=== PATIENT | female | born 1975 | race Caucasian/White ===

== ENCOUNTER 2017-11-17 02:54 | Inpatient (IN) | payer OTHER ==
[~2017-11-17] VITALS: Ht 162.6 cm; Wt 62.1 kg
[2017-11-17 06:47] VITALS: BP 135/91
[2017-11-17] MEDS ORDERED: LORazepam 2 MG TABLET PO PRN (07:00)
[2017-11-17] MEDS ORDERED: ZOLPIDEM TARTRATE 10 MG TABLET PO PRN (07:00)
[2017-11-17] MEDS ORDERED: HALOPERIDOL 5 MG TABLET PO PRN (07:00)
[2017-11-17 07:10] VITALS: BP 152/105
[2017-11-17] MEDS ORDERED: PNEUMOCOCCAL VACCINE POLYVALENT 0.5 ML VIAL [PPSV23] IM ONE (07:45)
[2017-11-17 08:57] VITALS: BP 134/97
[2017-11-17] MEDS ORDERED: CloNIDine HCL 0.1 MG TABLET PO PRN (12:45)
[2017-11-17 18:03] VITALS: BP 132/98
[2017-11-17] MEDS ORDERED: IBUPROFEN 400 MG TABLET PO PRN (20:45)
[2017-11-17] MEDS ORDERED: ACETAMINOPHEN 325 MG TABLET PO PRN (20:45)
[2017-11-18 06:34] VITALS: BP 142/88
[2017-11-18 07:29] LABS: BASOPHILS # (AUTO) 0.04 K/uL (0.00-0.20); BASOPHILS % (AUTO) 0.6 % (0.0-2.0); EOSINOPHILS # (AUTO) 0.17 K/uL (0.00-0.70); EOSINOPHILS % (AUTO) 2.26 % (1.0-6.0); HEMATOCRIT 38.7 % (36-46); HEMOGLOBIN 12.7 g/dL (12.0-16.0); HEMOGLOBIN A1C 5.8 % (4.5-6.2); LYMPHOCYTES # (AUTO) 1.6 K/uL (1.0-4.8); MEAN CORPUSCULAR HEMOGLOBIN 28.9 pg (26.0-34.0); MEAN CORPUSCULAR HGB CONC 32.8 G/dL (31.0-37.0); MEAN CORPUSCULAR VOLUME 88 fL (80-100); MONOCYTES # (AUTO) 0.6 K/uL (0.1-1.0); MONOCYTES % (AUTO) 7.4 % (2.0-9.0); NEUTROPHILS % (AUTO) 67.8 % (40.0-70.0); PLATELET COUNT (AUTO) 248 K/uL (150-450); RED BLOOD CELL COUNT(AUTO) 4.38 MIL/uL (4.00-5.20); RED CELL DISTRIBUTION WIDTH 14.1 % (11.5-14.5)
[2017-11-18 07:41] LABS: ALANINE AMINOTRANSFERASE 26 U/L (12-78); ALBUMIN 3.3 g/dL (3.4-5.0); ALKALINE PHOSPHATASE 98 U/L (46-116); ANION GAP 10 mmol/L (8-16); ASPARTATE AMINOTRANSFERASE 18 U/L (15-37); BILIRUBIN,TOTAL 0.3 mg/dL (0.1-1.0); CALCIUM, TOTAL 8.6 mg/dL (8.8-10.5); CARBON DIOXIDE 27 mmol/L (22-29); CHLORIDE 102 mmol/L (98-107); CREATININE 0.68 mg/dL (0.60-1.30); GLOMERULAR FILTR. RATE CALC > 60 mL/min (>60); GLUCOSE,RANDOM 86 mg/dL (70-110); POTASSIUM 3.6 mmol/L (3.5-5.1); SODIUM SERUM 139 mmol/L (136-145); THYROID STIMULATING HORMONE 0.67 uIU/mL (0.36-3.74); UREA NITROGEN, BLOOD 13 mg/dL (7-18)
[2017-11-18 08:04] LABS: CHOL/HDL RATIO 3.3 (3.9-5.7)
[2017-11-18 08:15] VITALS: BP_SYST 131; BP_SYST 152; BP_DIAS 76; BP_DIAS 92
[2017-11-18] MEDS: ARIPiprazole 10 MG TABLET PO SCH (08:26)
[2017-11-18 19:08] VITALS: BP 146/95
[2017-11-19 01:20] VITALS: BP 139/80
[2017-11-19] MEDS: ARIPiprazole 10 MG TABLET PO SCH (08:27)
[2017-11-19] MEDS ORDERED: AmLODIPine BESYLATE 2.5 MG TABLET PO SCH (09:00)
[2017-11-19] MEDS ORDERED: ARIP5TAB8 PO (11:07)
[2017-11-19] MEDS ORDERED: AMLO2.5T PO (11:07)
== END 2017-11-19 13:15 | disposition home or self-care (01) | DRG 885 ==
LOC: 3EX 06:11
PROVIDERS: ADMIT Psychiatry & Neurology Child & Adolescent Psychiatry; ATTEND Psychiatry & Neurology Child & Adolescent Psychiatry
DX: F20.9 Schizophrenia, unspecified (principal); R45.851 Suicidal ideations; E78.5 Hyperlipidemia, unspecified; F41.9 Anxiety disorder, unspecified; I10 Essential (primary) hypertension; Z88.1 Allergy status to other antibiotic agents
CPT/HCPCS: 83036; 84443